=== PATIENT | male | born 1950 | race Caucasian/White ===

== ENCOUNTER 2020-08-23 21:08 | Emergency (ER) | payer OTHER ==
[~2020-08-23] VITALS: Ht 175.3 cm; Wt 72.6 kg
[2020-08-23] MEDS ORDERED: LORazepam 2MG/ML-1ML VIAL ONE (22:43)
[2020-08-23] MEDS ORDERED: hydrALAZINE HCL 20 MG/ML VL ONE (22:47)
[2020-08-23 22:49] LABS: Basophils # (auto) 0 10 ^3/uL (0-0.2); Basophils % (auto) 0.3 % (0.0-2.0); Eosinophils # (auto) 0 10 ^3/uL (0-0.8); Eosinophils % (auto) 0.2 % (0.0-7.0); Hemoglobin 14.5 g/dL (13.5-17.5); Lymphocytes # (auto) 0.6 10 ^3/uL (0.4-5.4); Lymphocytes % (auto) 6.5 % (10.0-50.0); Mean Corpuscular Hgb Conc. 33.1 g/dL (32.0-36.0); Mean Corpuscular Volume 90.8 fL (80.0-100.0); Monocytes # (auto) 0.6 10 ^3/uL (0-1.3); Neutrophils # (auto) 7.2 10 ^3/uL (1.6-8.6); Platelet Count (auto) 171 10^3/uL (140-450); Red Blood Cells 4.84 10^6/uL (4.5-5.90); Red Cell Distribution Width 14.4 % (11.8-14.3); White Blood Cell 8.4 10^3/uL (4.4-10.8)
[2020-08-23] MEDS ORDERED: levETIRAcetam 500 MG/5ML INJ IV ONE (22:52)
[2020-08-23 23:04] LABS: INR 1.07 (0.9-1.15); Partial Thromboplastin Time 21.8 sec (23.0-31.2)
[2020-08-23 23:09] LABS: Anion Gap 11 (5-15); BUN/Creatinine Ratio 13.8; Blood Urea Nitrogen 15 mg/dL (7-18); Carbon Dioxide 26 mmol/L (21-32); Chloride 103 mmol/L (98-107); Glucose 156 mg/dL (74-106); Potassium 3.5 mmol/L (3.5-5.1); Sodium 140 mmol/L (136-145)
[2020-08-23 23:10] LABS: Acetaminophen < 2.0 ug/mL (10-30); Albumin 3.4 g/dL (3.4-5.0); Blood Alcohol < 3.0 mg/dL (0-5); Calcium 9.3 mg/dL (8.5-10.1); GFR African American 86 mL/min; GFR Non-African American 71 mL/min; Salicylate < 1.7 mg/dL (2.8-20.0)
[2020-08-23 23:11] LABS: Alanine Aminotransferase 22 U/L (16-61); Alkaline Phosphatase 103 U/L (45-117); Aspartate Aminotransferase 21 U/L (15-37); Bilirubin, Total 0.7 mg/dL (0.2-1.0); Total Protein 6.9 g/dL (6.4-8.2)
[2020-08-23] MEDS ORDERED: LORazepam 2MG/ML-1ML VIAL IV ONE (23:30)
[2020-08-23] MEDS ORDERED: hydrALAZINE HCL 20 MG/ML VL IV ONE (23:30)
[2020-08-24] MEDS ORDERED: SODIUM CHLORIDE 0.9% 1,000 ML IV ONE (05:15)
[2020-08-24 07:22] VITALS: BP 153/87
== END 2020-08-24 07:50 | disposition short-term general hospital (02) ==
LOC: ER 21:08 → EDBD 21:08 → ER 08-24 07:50
DX: G40.909 Epilepsy, unspecified, not intractable, without status epilepticus (principal); I60.9 Nontraumatic subarachnoid hemorrhage, unspecified; I11.0 Hypertensive heart disease with heart failure; I50.9 Heart failure, unspecified; Z86.73 Personal history of transient ischemic attack (TIA), and cerebral infarction without residual deficits
CPT/HCPCS: 36415; 70450; 71045; 72125; 80053; 80320; 80329; 82962; 83605; 83735; 83880; 84484; 85025; 85610; 85730; 96361; 96365; 96375; 99285; J0360; J1953; J2060; J7030; J7060; 93005